=== PATIENT | female | born 2000 | race African-American/Black ===

== ENCOUNTER 2023-04-01 15:34 | Emergency (ER) | payer SELFPAY ==
[~2023-04-01] VITALS: Ht 172.7 cm; Wt 130.0 kg
[2023-04-01 15:36] VITALS: BP 142/84; PULSE 100; RESP 16; TEMP 97.9; O2SAT 98
[2023-04-01] MEDS ORDERED: LEVE1000 MT (16:53)
[2023-04-01] MEDS ORDERED: LISI20TA31 MT (16:53)
== END 2023-04-01 17:07 | disposition home or self-care (01) ==
LOC: ER 15:34
DX: R56.9 Unspecified convulsions (principal); F41.9 Anxiety disorder, unspecified; Z76.0 Encounter for issue of repeat prescription
CPT/HCPCS: 81025; 99283

== ENCOUNTER 2023-04-19 21:44 | Emergency (ER) | payer SELFPAY ==
[~2023-04-19] VITALS: Ht 172.7 cm; Wt 120.0 kg
[~2023-04-19 21:44] MED LIST: LEVE1000 MT; LISI20TA31 MT
[2023-04-19 21:46] VITALS: BP 140/83; PULSE 101; RESP 16; TEMP 97.7; O2SAT 99
== END 2023-04-19 23:55 | disposition left against medical advice (07) ==
LOC: ER 21:44
DX: Z00.00 Encounter for general adult medical examination without abnormal findings (principal); F41.9 Anxiety disorder, unspecified
CPT/HCPCS: 81025; 99283